=== PATIENT | female | born 1995 | race Hispanic/Latino ===

== ENCOUNTER 2019-02-18 19:15 | Emergency (ER) | payer OTHER ==
[2019-02-18] MEDS ORDERED: Metoclopramide HCl 10 MG/2 ML VIAL ONE (19:50)
[2019-02-18] MEDS ORDERED: diphenhydrAMINE 50 MG/ML VIAL ONE (19:50)
[2019-02-18 20:01] LABS: #Eosinphils 0.2 thou/uL (0.0-0.7); #Lymphocytes 2.2 thou/uL (1.20-3.40); #Monocytes 0.7 thou/uL (0.11-0.59); #Neutrophils 6.3 thou/uL (1.40-6.50); %Basophils 0.4 % (0.0-1.0); %Eosinophils 1.8 % (0.0-10.0); %Lymphocytes 23.5 % (21.0-51.0); %Monocytes 6.9 % (0.0-10.0); %Neutrophils 67.4 % (42.0-75.0); Hemoglobin 12.4 g/dL (12.0-16.0); Mean Corpuscular HGB CONC 34.1 g/dL (32.0-36.0); Mean Corpuscular Hemoglobin 28.1 pg (27.0-31.0); Mean Corpuscular Volume 82.6 fL (78.0-98.0); Mean Platelet Volume 8.4 fL (7.4-10.4); Platelet Count 243 thou/uL (130-400); RBC Distribution Width 13.7 % (11.5-14.5); Red Blood Cell (RBC) Count 4.39 mill/uL (4.20-5.40); White Blood Cell (WBC) Count 9.4 thou/uL (4.8-10.8)
[2019-02-18 20:18] LABS: ALT (SGPT) 11 U/L (8-55); AST (SGOT) 15 U/L (5-34); Albumin 3.6 g/dL (3.5-5.0); Alkaline Phosphatase 75 U/L (40-150); Anion Gap 15 mmol/L (10-20); BUN (Urea Nitrogen) 4 mg/dL (7.0-18.7); Bilirubin, Total 0.3 mg/dL (0.2-1.2); Calc. Creatinine Clearance 0 mL/min (70-130); Carbon Dioxide 22 mmol/L (22-29); Chloride 103 mmol/L (98-107); Estimated GFR-MDRD Greater than 90; Globulin 3.5 g/dL (2.4-3.5); Glucose 89 mg/dL (70-105); Potassium 3.5 mmol/L (3.5-5.1); Protein, Total 7.1 g/dL (6.0-8.3); Sodium 136 mmol/L (136-145)
[2019-02-18 20:26] LABS: Bilirubin Negative (Negative); Blood, Urine Negative (Negative); Clarity CLOUDY (Clear); Glucose, Urine (Dipstick) Negative (Negative); Leukocyte Large (Negative); Nitrite Negative (Negative); Protein, Urine (Dipstick) Negative (Neg-Trace); Specific Gravity, Urine 1.018 (1.002-1.036); Urobilinogen 0.2 mg/dL (0.2-1.0); pH, Urine 7.5 (5.0-9.0)
[2019-02-18 20:29] LABS: Bacteria/HPF 1+ HPF (None Seen); Hyaline Casts/LPF 0-3 HYALINE CAST LPF (0-3 Hyaline); Pathc Cast-AUWi Flag 0.27 (0-2.49); WBC/HPF 21-50 HPF (0-3)
[2019-02-18 20:43] LABS: Yeast-All Forms None Seen HPF (None Seen)
[2019-02-18] MEDS ORDERED: Magnesium 2 GM/50 ML BAG (IN WATER) ONE (20:50)
[2019-02-18] MEDS ORDERED: Acetaminophen 500 MG TAB ONE (20:50)
[2019-02-18] MEDS ORDERED: Nitrofurantoin Macrocrystal 50 MG CAP PO SCH (21:15)
== END 2019-02-18 22:02 | disposition home or self-care (01) ==
LOC: ERS 19:15
DX: O99.89 Other specified diseases and conditions complicating pregnancy, childbirth and the puerperium (principal); R51 Headache; O23.42 Unspecified infection of urinary tract in pregnancy, second trimester; Z3A.21 21 weeks gestation of pregnancy
CPT/HCPCS: 80053; 81003; 81015; 85025; 87086; 96365; 96367; 96375; J1200; J2765; J3475